=== PATIENT | male | born 2000 | race Caucasian/White ===

== ENCOUNTER 2025-04-28 10:16 | Emergency (ER) | payer OTHER ==
[~2025-04-28] VITALS: Ht 172.7 cm; Wt 104.3 kg
[2025-04-28] MEDS ORDERED: ACET-683 PO (12:06)
[2025-04-28] MEDS: IBUPROFEN 600 MG TAB PO ONE (12:43)
[2025-04-28 14:14] VITALS: BP 137/79; TEMP 97.8; O2SAT 98
== END 2025-04-28 14:15 | disposition home or self-care (01) ==
LOC: M ED 10:16
DX: M79.662 Pain in left lower leg (principal); M79.661 Pain in right lower leg; F17.200 Nicotine dependence, unspecified, uncomplicated; Z79.1 Long term (current) use of non-steroidal anti-inflammatories (NSAID)